=== PATIENT | female | born 1990 | race Caucasian/White ===

== ENCOUNTER 2017-12-25 18:31 | Observation (INO) ==
[2017-12-25] MEDS ORDERED: Ondansetron 4 MG/2 ML VIAL IVP PRN (21:13)
--- NOTE | 2017-12-25 21:14 | Internal Med History&Physical ---
Date of Encounter: 12/25/17 Time of Encounter: 21:07 Internal Medicine - H&P: HPI Chief complaint: Transferred for chest pain Admitted From: Direct Admit Plans for Post Hospital Care: Home History of present illness: Ms. Blum is a 27 year old female with history of fibromyalgia not on meds and tobacco abuse but is only smoking about 4-5 cigs/day who presented as a transfer from [facility] for evaluation of chest pain and bradycardia. 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 She says she always has chest discomfort that is constant but this one was different. She felt left sided pressure. She felt that she was missing some heartbeats every third to fourth beat. The pain radiated to the left side of her neck and shoulder and arm. She is been feeling diaphoretic as well. She feels that her breathing was heavy. The patient had episodes like this in the past but again she feels this is different. Of note, the patient saw her PCP yesterday and asked to be started on Citalopram. I asked her if she feels anxious and she stated that she is but does not feel that this is causing her symptoms. She follows with Dr. Smith and has been diagnosed with vasovagal syncope in the past. She had a cardiac workup in the past that included a couple of will to monitor his in 2015 2016. Had a stress test as well as an echocardiogram. The echocardiogram and the stress test were unremarkable. Holter monitor in 2017 showed sinus bradycardia as well as sinus tachycardia. Heart rates were as low as the 30s and up to the 140s. There was some PACs and PVCs. EKG done at [facility] showed sinus rhythm with rate of [address] or T-wave changes. Her heart rate there was noted to be in the 40s. Dr. Barnes from cardiology was contacted and recommended transferring her. Denies any headache, fever, chills, dizziness, abdominal pain, diarrhea, constipation, her symptoms, or neurological symptoms. In the ED there she was otherwise hemodynamically stable. Labs were mostly unremarkable including troponins. She had mild elevated WBC count 11.4. Past Med Surg Social Fam HX - Past Medical History Medical history: fibromyalgia Additional medical history: Trigeminal myralgia. Vaso vago response. Psychiatric history: anxiety - Past Surgical History Surgical History: appendectomy, cholecystectomy, other Additional surgical history: MINISCUS REPAIR, TUBAL LITIGATION. Tempanoplasty - Social History Smoking Status: Current every day smoker Packs per day: 4 cigarettes Smokeless Tobacco Status: No Alcohol use: none Drug use: none - Family History Mother Hx Family Cardiac Disorders: No Hx Family Respiratory Disorders: No Hx Family Cancer: No Hx Family GI Disorders: Yes (IBS, Diverticulosis) Hx Family Genitourinary Disorders: No Hx Family Endocrine Disorder: Yes (DM) Hx Family Musculoskeletal Disorders: No Hx Family Neuromuscular Disorders: No Hx Family Neurologic Disorders: Yes (TBI) Hx Family HEENT Disorders: No Hx Family Autoimmune Disorders: No Hx Family Reproductive Disorders: No Hx Family Psychosocial Disorders: No Hx Family Medical Disorders: No Internal Medicine - H&P: Meds Citalopram Hydrobromide [Citalopram HBr] 10 mg PO DAILY 12/25/17 [History] Varenicline Tartrate [Chantix] 1 mg PO BID 12/25/17 [History] Allergy/AdvReac Type Severity Reaction Status Date / Time steroids Allergy Intermediate See Uncoded 10/30/17 18:35 Comments [place]ut Allergy Anaphylaxis Uncoded 10/30/17 18:35 All Systems PM: A 10-system review of systems was performed and is negative for pertinent findings except as documented above in the HPI. Review of systems: All systems reviewed are negative except as mentioned above - Constitutional Vitals: Temp Pulse Resp BP Pulse Ox 98.3 F 41 16 114/74 98 12/25/17 20:52 12/25/17 20:52 12/25/17 20:52 12/25/17 20:52 12/25/17 20:52 Exam: GEN: NAD HEENT: AT, NC, No cyanosis, oral mucosa is moist, No JVD Lymphatics: No lymphadenoapthy Eyes: Extrocular muscles intact, anicteric CVS:RRR. S1, S2, No m/r/g RESP: CTAB ABD: Soft, NT, ND, +BS EXT: No edema, No rashes, 2+ DP NEURO: Nonfocal, CN II-XII intact, No focal motor or sensory deficits Psych: Cooperative, Not anxious or depressed - Assessment and plan (1) Chest pain Current Visit: Yes Status: Acute Assessment and plan: We will admit to telemetry. The patient has had workup in the past that included stress test, echo, Holter monitors. We will just trend cardiac enzymes here. We will repeat an EKG here. We will consult cardiology see the patient for further workup and they have been made aware from Kayleigh Nash. Check hemoglobin A1c and lipid panel. Qualifiers: Chest pain type: unspecified Qualified Code(s): R07.9 - Chest pain, unspecified (2) Bradycardia Current Visit: No Status: Acute Assessment and plan: Unclear etiology. We will have cardiology see the patient. Keep on telemetry and check TSH. (3) Fibromyalgia Current Visit: Yes Status: Acute Assessment and plan: Not on home meds. (4) Tobacco abuse Current Visit: Yes Status: Acute Assessment and plan: Offered nicotine patch but does not want it. (5) DVT prophylaxis Current Visit: Yes Status: Acute Assessment and plan: Heparin subcutaneous - Time Spent With Patient Total time spent is greater than 50% in coordination of care (as documented) at patient's floor/unit and/or counseling patient:
[2017-12-25] MEDS ORDERED: Naloxone 0.4 MG/ML INJ IVP PRN (21:17)
[2017-12-25] MEDS: *HR* Heparin 5,000 UNIT/ML VIAL SQ SCH (22:24)
[2017-12-26] MEDS ORDERED: Acetaminophen IV 500 MG/50 ML INFUS..BTL IVPB ONE (03:18)
[2017-12-26 03:37] LABS: Basophils # 0.1 K/mcL (0.0-0.2); Basophils % 0.6 %; Eosinophils # 0.6 K/mcL (0.0-0.6); Eosinophils % 5.3 %; Hematocrit 39.5 % (35.3-44.9); Hemoglobin 12.7 g/dL (11.5-15.4); Immature Granulocytes % 1.1 % (0-4); Lymphocytes # 2.9 K/mcL (0.6-4.6); Lymphocytes % 24.3 %; Mean Corpuscular HGB Conc 32.2 g/dL (31.6-35.5); Mean Corpuscular Hemoglobin 27.7 pg (28.0-33.3); Mean Corpuscular Volume 86.2 fL (83.0-100.0); Mean Platelet Volume 9.9 fL (9.4-12.4); Monocytes # 0.7 K/mcL (0.0-1.3); Monocytes % 5.5 %; Neutrophils # 7.5 K/mcL (1.6-8.9); Platelet Count 228 K/mcL (140-400); Red Blood Count 4.58 M/mcL (3.82-4.97); Red Cell Distribution Width 13.6 % (11.5-14.5); Segmented Neutrophils % 63.2 %
[2017-12-26 03:55] LABS: Chol/HDL Ratio 3.9 (0-4.9)
[2017-12-26 03:58] LABS: BUN/Creatinine Ratio 13 (6-26); Blood Urea Nitrogen 11 mg/dL (6-20); Calcium 9.2 mg/dL (8.6-10.3); Carbon Dioxide 27 mEq/L (23-29); Chloride 107 mEq/L (98-107); Glucose 100 mg/dL (70-105); Magnesium 1.9 mg/dL (1.6-2.6); Osmolality,Calculated 289 (280-300); Potassium 3.9 mEq/L (3.5-5.1); Sodium 140 mEq/L (136-145); eGFR For Non-African Americans > 60 (> 60)
[2017-12-26 04:11] LABS: Thyroid Stimulating Hormone 1.171 mcIU/mL (0.340-5.600)
[2017-12-26] MEDS: *HR* Heparin 5,000 UNIT/ML VIAL SQ SCH ×3 (05:54→21:11)
[2017-12-26 07:00] LABS: Estimated Average Glucose 111 mg/dl; Hemoglobin A1C 5.5 %
--- NOTE | 2017-12-26 10:34 | Cardiology Consult Note ---
<Jose R Grace - Last Filed: 12/26/17 10:45> Date of Encounter: 12/26/17 Time of Encounter: 10:00 Assessment and Plan (1) Chest pain Current Visit: Yes Status: Acute Atypical chest pain symptoms. Troponin negative x3, EKG with no acute ST changes, SB, HR 41 bpm. Cardiac risk factors include tobacco use. Pt is quitting. Standard Stress test 03/2016 was negative for ischemia. TTE 03/2016- EF 60%-65%, no significant valvular disease. Will consider further testing after tilt table test. Qualifiers: Chest pain type: unspecified Qualified Code(s): R07.9 - Chest pain, unspecified (2) Syncope Current Visit: Yes Status: Acute H/o multiple syncopal episodes in the past. C/o syncopal event occurring yesterday proceeded with chest pain. Discussed with Dr. Song, recommend tilt table test for further evaluation. She is noted to have bradycardia mainly during nocturnal hours. New to have heart rates in the 40s while awake in bed. Event monitor completed last year showed no significant bradycardia correlating with symptoms. Continue to monitor telemetry. Qualifiers: Syncope type: unspecified Qualified Code(s): R55 - Syncope and collapse (3) Bradycardia Current Visit: No Status: Acute Noted to have sinus bradycardia while awake. No significant block or pauses seen. Minimum heart rate was 38 bpm at 8:20 AM. She did undergo exercise stress test one year ago with appropriate increase in heart rate. TSH was normal. Avoid AV reebl blockers. Continue to monitor telemetry. We will consider EP evaluation during her stay. Discussion w patient/family: The assessment and plan as outlined above was discussed with the patient and/or family members who expressed understanding and agreement. All questions were answered. Thank you for involving us in the care of your patient. Please call with any questions. History of Present Illness Consult date: 12/26/17 Requesting physician: Lourdes Carlson Consult reason: CP and bradycardia Chief complaint: Chest pain History of present illness: Ms. Blum is a 27 year old female with past medical history significant for fibromyalgia, syncopal events 2 years ago, and depression. She presented with the c/o chest pain that was present when she woke from her sleep yesterday afternoon. Te pain is described as a left sided chest discomfort that radiated to her left shoulder, left neck, and left shoulder blade. C/o squeezing sensation that turned into a dull ache. She denies aggravating or alleviating factors. Also c/o excessive sweating and migraine headache. C/o syncopal event while laying on her couch. Reports similar symptoms last year when she underwent stress test, echocardiogram and event monitor. No concerning findings at that time. Past Med Surg Social Fam HX - Past Medical History Medical history: fibromyalgia Additional medical history: Trigeminal myralgia. Vaso vago response. Psychiatric history: anxiety - Past Surgical History Surgical History: appendectomy, cholecystectomy, other Additional surgical history: MINISCUS REPAIR, TUBAL LITIGATION. Tempanoplasty - Social History Smoking Status: Current every day smoker Packs per day: 4 cigarettes Smokeless Tobacco Status: No Alcohol use: none Drug use: none - Family History Mother Hx Family Cardiac Disorders: No Hx Family Respiratory Disorders: No Hx Family Cancer: No Hx Family GI Disorders: Yes (IBS, Diverticulosis) Hx Family Genitourinary Disorders: No Hx Family Endocrine Disorder: Yes (DM) Hx Family Musculoskeletal Disorders: No Hx Family Neuromuscular Disorders: No Hx Family Neurologic Disorders: Yes (TBI) Hx Family HEENT Disorders: No Hx Family Autoimmune Disorders: No Hx Family Reproductive Disorders: No Hx Family Psychosocial Disorders: No Hx Family Medical Disorders: No Medications and Allergies Citalopram Hydrobromide [Citalopram HBr] 10 mg PO DAILY 12/25/17 [History] Varenicline Tartrate [Chantix] 1 mg PO BID 12/25/17 [History] Allergy/AdvReac Type Severity Reaction Status Date / Time steroids Allergy Intermediate See Uncoded 10/30/17 18:35 Comments [place] Allergy Anaphylaxis Uncoded 10/30/17 18:35 All Systems Review: The remainder of the systems were reviewed and are negative Physical Examination Vital Signs, Last 4 Hours Temp Pulse Resp BP Pulse Ox 12/26/17 06:33 97.6 F 51 16 113/67 96 General: Conversant, No Apparent Distress HEENT: Atraumatic, Normocephaly, Mucus Membranes Moist Neck: No JVD, Normal carotid pulses Cardiac: Reg Rate and Rhythm, Normal S1 and S2, No Murmur Lungs: Normal Breath Sounds, No Wheeze, Rales, Rhonchi Neuro: Alert and responsive, No focal deficits noted Abdomen: Soft, Non-Tender Skin: No rashes noted on visualized skin Musculoskeletal: No Chest Wall Tenderness Extremities: No Clubbing, No Cyanosis, No Edema, Normal Pulses Results 12/26/17 03:13 12/26/17 03:13 Lab Results 12/25/17 12/26/17 12/26/17 21:20 03:13 03:13 WBC 11.8 H Hgb 12.7 Hct 39.5 Plt Count 228 Sodium Potassium Chloride Carbon Dioxide BUN Creatinine Glucose Calcium Magnesium Troponin I < 0.03 < 0.03 TSH 12/26/17 03:13 WBC Hgb Hct Plt Count Sodium 140 Potassium 3.9 Chloride 107 Carbon Dioxide 27 BUN 11 Creatinine 0.86 Glucose 100 Calcium 9.2 Magnesium 1.9 Troponin I TSH 1.171 Consult Discharge Plan - Plan Referrals: Vasile Shah MD [Primary Care Provider] - 01/02/18 2:15 pm <Dave Song - Last Filed: 12/26/17 12:04> Date of Encounter: 12/26/17 - Attending Attestation I have personally performed a face to face evaluation on this patient. I have reviewed and agree with the documented findings and care plan as documented by the SITE LEASING AGENT. History and Exam by me shows: 27-year-old female with known history of bradycardia and vasovagal syncope, previously seen by Dr. Tony Smith last year and conservative management was recommended at the time. She has not followed up since then. Now presenting with atypical chest pain associated with syncope. I agree with stress echocardiogram. A tilt table test can be done if stress echocardiogram is normal Dave Morley MD Assessment and Plan Discussion w patient/family: The assessment and plan as outlined above was discussed with the patient and/or family members who expressed understanding and agreement. All questions were answered. Thank you for involving us in the care of your patient. Please call with any questions. History of Present Illness History of present illness: Ms. Blum is a 27 year old female All Systems Review: The remainder of the systems were reviewed and are negative Physical Examination Vital Signs, Last 4 Hours Temp Pulse Resp BP Pulse Ox 12/26/17 11:01 98.0 F 51 18 94/56 97 Results 12/26/17 03:13 12/26/17 03:13 Lab Results 11/12/26/17 12/26/17 21:20 03:13 03:13 WBC 11.8 H Hgb 12.7 Hct 39.5 Plt Count 228 Sodium Potassium Chloride Carbon Dioxide BUN Creatinine Glucose Calcium Magnesium Troponin I < 0.03 < 0.03 TSH 12/26/17 03:13 WBC Hgb Hct Plt Count Sodium 140 Potassium 3.9 Chloride 107 Carbon Dioxide 27 BUN 11 Creatinine 0.86 Glucose 100 Calcium 9.2 Magnesium 1.9 Troponin I TSH 1.171
[2017-12-26] MEDS: Acetaminophen 325 MG TABLET PO PRN (11:00)
[2017-12-26] MEDS ORDERED: Nitroglycerin 0.4 MG TAB.SUBL SL PRN (11:07)
--- NOTE | 2017-12-26 11:08 | Internal Med Progress Note ---
Hospitalist Progress Note - Encounter Date of Encounter: 12/26/17 Time of Encounter: 10:00 - Subjective Interval History: Ms. Blum is a 27 year old female with past medical history significant for fibromyalgia,multiple syncopal episodes and depression pt presented to [facility] ER with the c/o chest pain and a syncopal episode. Yesterday she did have left sided chest pain all day long, more like dull ache, radiating to her left shoulder associated with some palpitations. Later she passed out, which prompted her to go to ER. In the ER she happened to have significant bradycardia, patient was transferred to our hospital for further evaluation. Patient did mention she had this recurrent syncopal episode for a while, she did even follow with labor economics teacher Dr. Smith as an outpatient who did stress test as well as Holter monitor a year ago apparently all the work up was negative at the time. She had intermittent CP and had 5 syncopal episodes last month. No more syncopal episodes, still has some chest discomfort associated with headaches. - Exam Vitals: Temp Pulse Resp BP Pulse Ox 97.6 F 51 16 113/67 96 12/26/17 06:33 12/26/17 06:33 12/26/17 06:33 12/26/17 06:33 12/26/17 06:33 Exam: Gen: Alert, awake, Oriented to time,place and person Chest: Diminished breath sounds B/L, No wheezing, No crackles, No rales Heart: S1S2+ RRR No murmurs Abd: Soft, NT, BS +, No organomegaly Ext: No edema, pulses are palpable, No calf tenderness Neuro : Benign findings Skin: No rash. - Assessment and Plan (1) Bradycardia Current Visit: No Status: Acute Assessment and Plan: Symptomatic bradycardia unclear etiology TSH - WNL May need further work up to r/o Ischemic head disease so far negative troponin EKG did not show ant ST, T changes Appreciate cardiology recommendations (2) Chest pain Current Visit: Yes Status: Acute Assessment and Plan: Cont on tele Troponin x [address] T changes on EKG Negative standard stress test from 03/2016 Appreciate Card recommendations cont ASA + SL Nitro PRN (3) Fibromyalgia Current Visit: Yes Status: Acute Assessment and Plan: started on pain meds (4) DVT prophylaxis Current Visit: Yes Status: Acute Assessment and Plan: Heparin subcutaneous (5) Tobacco abuse Current Visit: Yes Status: Acute Assessment and Plan: Counseled to quit Offered nicotine patch but do not want it - Time Spent with Patient Total time spent is greater than 50% in coordination of care (as documented) at patient's floor/unit and/or counseling patient: Internal Medicine: Result - Labs CBC & Chem 7: 12/26/17 03:13 12/26/17 03:13 Labs: Short CBC 12/26/17 Range/Units 03:13 WBC 11.8 H (4.3-11.1) K/mcL Hgb 12.7 (11.5-15.4) g/dL Hct 39.5 (35.3-44.9) % Plt Count 228 (140-400) K/mcL Neutrophils # 7.5 (1.6-8.9) K/mcL BMP 12/26/17 03:13 Sodium 140 Potassium 3.9 Chloride 107 Carbon Dioxide 27 BUN 11 Creatinine 0.86 Glucose 100 Calcium 9.2 Cardiac Enzymes 12/25/17 12/26/17 Range/Units 21:20 03:13 Troponin I < 0.03 < 0.03 (< 0.04) ng/mL Consult Discharge Plan - Plan Referrals: Vasile Shah MD [Primary Care Provider] - (2) Chest pain Qualifiers: Chest pain type: unspecified Qualified Code(s): R07.9 - Chest pain, uns pecified
[2017-12-26] MEDS: Aspirin Enteric Coated 81 MG Tablet PO SCH (11:54)
[2017-12-26] MEDS: 0.9 % Sodium Chloride 1,000 ML IVC SCH ×2 (14:31→21:54)
[2017-12-26] MEDS: Ibuprofen 600 MG TABLET PO PRN (14:32)
[2017-12-26] MEDS ORDERED: Ibuprofen 600 MG TABLET PO ONE (21:06)
[2017-12-27] MEDS: Acetaminophen 325 MG TABLET PO PRN (01:36)
[2017-12-27] MEDS: *HR* Heparin 5,000 UNIT/ML VIAL SQ SCH ×2 (05:00→15:01)
[2017-12-27] MEDS: 0.9 % Sodium Chloride 1,000 ML IVC SCH (05:07)
[2017-12-27] MEDS: Ibuprofen 600 MG TABLET PO PRN (05:13)
[2017-12-27] MEDS: Aspirin Enteric Coated 81 MG Tablet PO SCH (09:14)
--- NOTE | 2017-12-27 14:14 | Internal Med Progress Note ---
Hospitalist Progress Note - Encounter Date of Encounter: 12/27/17 Time of Encounter: 14:16 - Subjective Interval History: Ms. Blum is a 27 year old female with past medical history significant for fibromyalgia,multiple syncopal episodes and depression pt presented to [facility] ER with the c/o chest pain and a syncopal episode. Yesterday she did have left sided chest pain all day long, more like dull ache, radiating to her left shoulder associated with some palpitations. Later she passed out, which prompted her to go to ER. In the ER she happened to have significant bradycardia, patient was transferred to our hospital for further evaluation. Patient did mention she had this recurrent syncopal episode for a while, she did even follow with bell person Dr. Smith as an outpatient who did stress test as well as Holter monitor a year ago apparently all the work up was negative at the time. She had intermittent CP and had 5 syncopal episodes last month. No more syncopal episodes, still has some chest discomfort associated with headaches. - Exam Vitals: Temp Pulse Resp BP Pulse Ox 97.7 F 41 17 112/69 95 12/27/17 11:33 12/27/17 11:33 12/27/17 11:33 12/27/17 11:33 12/27/17 11:33 Exam: Gen: Alert, awake, Oriented to time,place and person Chest: Diminished breath sounds B/L, No wheezing, No crackles, No rales Heart: S1S2+ Bradycardia, No murmurs Abd: Soft, NT, BS +, No organomegaly Ext: No edema, pulses are palpable, No calf tenderness Neuro : Benign findings Skin: No rash. - Assessment and Plan (1) Bradycardia Current Visit: No Status: Acute Assessment and Plan: Symptomatic bradycardia unclear etiology TSH - WNL Stress ECHO did not show any wall motion / structural abnormality so far negative troponin EKG did not show ant ST, T changes Appreciate cardiology recommendations waiting for tilt test report patient is still complaining about intermittent chest pain and lightheadedness her heart rate is still in high 40s and low 50s (2) Chest pain Current Visit: Yes Status: Acute Assessment and Plan: Cont on tele Troponin x [address] T changes on EKG Negative standard stress test from 03/2016 Appreciate Card recommendations cont ASA + SL Nitro PRN (3) Fibromyalgia Current Visit: Yes Status: Acute Assessment and Plan: started on pain meds (4) DVT prophylaxis Current Visit: Yes Status: Acute Assessment and Plan: Heparin subcutaneous (5) Tobacco abuse Current Visit: Yes Status: Acute Assessment and Plan: Counseled to quit Offered nicotine patch but do not want it - Time Spent with Patient Total time spent is greater than 50% in coordination of care (as documented) at patient's floor/unit and/or counseling patient: Internal Medicine: Result - Labs CBC & Chem 7: 12/26/17 03:13 12/26/17 03:13 Consult Discharge Plan - Plan Referrals: Vasile Shah MD [Primary Care Provider] - 01/02/18 2:15 pm (2) Chest pain Qualifiers: Chest pain type: unspecified Qualified Code(s): R07.9 - Chest pain, unspecified
--- NOTE | 2017-12-27 14:41 | Cardiology Progress Note ---
Addendum entered and electronically signed by Dave Song MD 12/27/17 16:04: I had extensive discussion with Ms. Blum regarding her cardiac testing including stress echocardiogram which was negative for ischemia, and tilt table testing which was negative for vasodepressor or cardioinhibitory cause of syncope. She had exercise stress test last year which had shown normal chronotropic competence without ischemic changes on EKG. Recommend low-dose Lexapro vs Zoloft. Also possible neurology and psychiatric evaluation given her depressive symptoms. She wishes to do these as an outpatient. She has an appointment with supervisor water treatment plant Dr. Smith in 2 weeks. Encouraged to keep the appointment. Meanwhile I advised her on counter pressure maneuvers, adequate hydration and salt intake. Thanks, Dave Song MD Original Note: Date of Encounter: 12/27/17 Time of Encounter: 14:39 Assessment and Plan (1) Chest pain Current Visit: Yes Status: Acute Atypical chest pain symptoms. Troponin negative x3, EKG with no acute ST changes, SB, HR 41 bpm. Cardiac risk factors include tobacco use. Pt is quitting. Stress echocardiogram was negative. Preserved EF with appropriate response to exercise. HR increased appropriately with exercise. No further ischemic work-up at this time. Consider non-cardiac cause of chest pain. Qualifiers: Chest pain type: unspecified Qualified Code(s): R07.9 - Chest pain, unspecified (2) Syncope Current Visit: Yes Status: Acute H/o multiple syncopal episodes in the past. C/o un witnessed syncopal event occurring yesterday proceeded with chest pain. Tilt table test completed. Preliminary results -Baseline HR in the 40's. No symptoms during test per patient. She is noted to have bradycardia mainly during nocturnal hours and at rest. HR does increase with activity. Avg HR 56 bpm. Discussed findings with Dr. Song, patient may benefit from SSRI for syncope of unknown eitiology. Pt describes increased depression and anxiety from stress at home so this may be a good option for her. Qualifiers: Syncope type: unspecified Qualified Code(s): R55 - Syncope and collapse (3) Bradycardia Current Visit: No Status: Acute Noted to have sinus bradycardia while awake. No significant block or pauses seen. Minimum heart rate was 40 bpm at 1239 pm. . She did undergo exercise stress test one year ago with appropriate increase in heart rate. Stress echocardiogram completed. Pt did meet predicted HR and had appropriate increase in HR with exercise. TSH was normal. Avoid AV rebel blockers. No indication for intervention at this time. Continued ou-pt f/u with electrophysiology recommended. Appt set. Discussion w patient/family: The assessment and plan as outlined above was discussed with the patient and/or family members who expressed understanding and agreement. All questions were answered. Thank you for involving us in the care of your patient. Please call with any questions. Subjective Principal diagnosis: chest pain, bradycardia Interval history: Ms. Blum is tearful on my exam. C/o fatigue and intermittent lightheadedness. Objective Vital Signs, Last 4 Hours Temp Pulse Resp BP Pulse Ox 12/27/17 11:33 97.7 F 41 17 112/69 95 General: Conversant, Other (Agitated and tearful) HEENT: Atraumatic, Mucus Membranes Moist Cardiac: Reg Rate and Rhythm Lungs: Other (respirations easy) Neuro: Alert and responsive, No focal deficits noted Extremities: No Cyanosis Results 12/26/17 03:13 12/26/17 03:13 - Imaging and Cardiology Stress Test: report reviewed Other Results: Tilt pending- preliminary negative. - EKG Interpretation EKG results cardiology: personally reviewed Consult Discharge Plan - Plan Referrals: Vasile Shah MD [Primary Care Provider] - 01/02/18 2:15 pm
--- NOTE | 2017-12-27 15:26 | Discharge Summary ---
- NOTES TO OUTPATIENT PROVIDER Notes to Outpatient Provider: Follow up with PCP on Sunday. f/u with Cardiology Dr. Smith 1-2 weeks. start taking Celexa 20mg PO Daily. Please continue event monitor. If you have any syncopal episodes / dizziness spells please come back to ER. Orders not resulted at time of discharge: Pending orders 12/27/17 15:14 ECG event monitor 4 weeks [ECG] Routine 12/28/17 04:00 BMP [Basic Metabolic Panel] AM 0400 Magnesium AM 0400 Date of Encounter: 12/27/17 Time of Encounter: 15:23 - Discharge Diagnosis (1) Bradycardia Priority: Primary Status: Acute (2) Chest pain Priority: Primary Status: Acute Qualifiers: Chest pain type: unspecified Qualified Code(s): R07.9 - Chest pain, unspecified (3) Fibromyalgia Priority: Secondary Status: Acute (4) DVT prophylaxis Priority: Secondary Status: Acute (5) Tobacco abuse Priority: Secondary Status: Acute Hospital course: Ms. Blum is a 27 year old female with past medical history significant for fibromyalgia,multiple syncopal episodes and depression pt presented to [facility] ER with the c/o chest pain and a syncopal episode. Yesterday she did have left sided chest pain all day long, more like dull ache, radiating to her left shoulder associated with some palpitations. Later she passed out, which prompted her to go to ER. In the ER she happened to have significant bradycardia, patient was transferred to our hospital for further evaluation. Patient did mention she had this recurrent syncopal episode for a while, she did even follow with corporate paralegal Dr. Smith as an outpatient who did stress test as well as Holter monitor a year ago apparently all the work up was negative at the time. She had intermittent CP and had 5 syncopal episodes last month. No more syncopal episodes, still has some chest discomfort associated with headaches. Her serial troponin x 3 came back as negative. Patient was evaluated by corporate paralegal who recommended stress echo and tilt test. Stress echo was negative for any ischemia, preserved EF with appropriate response to exercise. HR increased appropriately with exercise. As per corporate paralegal Dr. Song her tilt table test came back as normal, who do not recommend any further invasive work up regarding her bradycardia. He wanted to start her on SSRI and place event monitor, as well as f/u with EP Train Bra[employer] Dr. Smith as an out pt. Since pt is on Celexa 10mg, I did increased the dose to 20mg, also talked to pt's PCP and updated her about current care. Recommend to avoid any AV rebel blockers. Talked to corporate paralegal Dr. Smith, who agrees that there is no urgent need at this point, pt cane be safely discharged home and f/u with him as an out pt. - Time Spent with Patient Total time spent providing and/or coordinating discharge services: - Discharge Medications Prescriptions: Aspirin Enteric Coated [Aspirin EC] 81 mg PO DAILY #30 tablet. Citalopram Hydrobromide [Citalopram HBr] 20 mg PO DAILY 30 Days tablet Home Medications: Albuterol Sulfate [Ventolin Hfa] 2 puff IH Q6H PRN 12/26/17 [History] Dicyclomine [Bentyl] 10 mg PO QID PRN 12/26/17 [History] SUMAtriptan Succinate [Imitrex] 100 mg PO Q2H PRN MDD 200 mg 12/26/17 [History] Topiramate 50 mg PO QPM 12/26/17 [History] Topiramate 75 mg PO QAM 12/26/17 [History] Aspirin Enteric Coated [Aspirin EC] 81 mg PO DAILY #30 tablet. 12/27/17 [Rx] Citalopram Hydrobromide [Citalopram HBr] 20 mg PO DAILY 30 Days tablet 12/27/17 [Rx] Allergies/Adverse Reactions: Allergy/AdvReac Type Severity Reaction Status Date / Time steroids Allergy Intermediate See Uncoded 10/30/17 18:35 Comments [place] Allergy Anaphylaxis Uncoded 10/30/17 18:35 Date of admission: 12/25/17 19:49 Primary care physician: Vasile Shah MD Consults: 12/25/17 21:12 Consult to Cardiology [CONS] Routine Comment: Consulting Provider: Cardiology Kayleigh Reason for Consult: bradycardia/chest pain Call Completed: Yes - Constitutional Vitals: Temp Pulse Resp BP Pulse Ox 97.7 F 41 17 112/69 95 12/27/17 11:33 12/27/17 11:33 12/27/17 11:33 12/27/17 11:33 12/27/17 11:33 Exam: Gen: Alert, awake, Oriented to time,place and person Chest: Diminished breath sounds B/L, No wheezing, No crackles, No rales Heart: S1S2+ Bradycardia, No murmurs Abd: Soft, NT, BS +, No organomegaly Ext: No edema, pulses are palpable, No calf tenderness Neuro : Benign findings Skin: No rash. - Patient Status Disposition: Home, Self-Care Condition: Good Overall status at discharge: patient is back to baseline - Discharge Instructions Instructions: Aspirin (By mouth), Citalopram (By mouth), Chest Pain (DC), How to Stop Smoking (DC), Syncope (DC) Follow Up With: Vasile Shah MD [Primary Care Provider] - 01/02/18 2:15 pm
[2017-12-27 15:31] VITALS: BP 127/57
--- NOTE | 2017-12-29 22:33 | Electrocardiograph Report ---
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
--- NOTE | 2017-12-30 09:34 | Electrocardiograph Report ---
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
== END 2017-12-27 17:09 | disposition home or self-care (01) ==
LOC: 3BNU
PROVIDERS: ADMIT Internal Medicine; ATTEND Internal Medicine